=== PATIENT | female | born 1985 | race Caucasian/White ===

== ENCOUNTER 2021-11-11 22:47 | Inpatient (IN) | payer BC ==
[2021-11-11] MEDS ORDERED: Morphine 10 MG/ML VIAL IM SCH (23:45)
[2021-11-11] MEDS ORDERED: Promethazine HCl 25 MG/ML VIAL IM SCH (23:45)
[2021-11-11] MEDS ORDERED: hydrALAZINE 20 MG/ML VIAL SLOW IVP PRN (23:46)
[2021-11-12] MEDS ORDERED: hydrALAZINE 20 MG/ML VIAL SLOW IVP PRN ×2 (02:44→11:51)
[2021-11-12] MEDS ORDERED: Promethazine HCl 25 MG/ML VIAL IM PRN ×2 (02:44→06:22)
[2021-11-12] MEDS ORDERED: Ondansetron PF 4 MG/2 ML Vial IVP PRN ×3 (02:44→11:51)
[2021-11-12] MEDS ORDERED: Butorphanol Tartrate 1 MG/ML VIAL SLOW IVP PRN (02:44)
[2021-11-12] MEDS ORDERED: Lactated Ringer's 1,000 ML IV SCH ×2 (02:45)
[2021-11-12] MEDS ORDERED: Misoprostol 200 MCG TAB PR PRN (02:46)
[2021-11-12] MEDS ORDERED: HYDROcodone/Acetaminophen 5/325 mg Tablet PO PRN ×3 (02:46→11:51)
[2021-11-12] MEDS ORDERED: Lidocaine 1% (PF) 30 ML VIAL SC PRN (02:46)
[2021-11-12] MEDS ORDERED: Methylergonovine 0.2 MG/ML VIAL IM PRN (02:46)
[2021-11-12] MEDS ORDERED: Ibuprofen 800 MG TAB PO PRN (02:46)
[2021-11-12] MEDS ORDERED: Penicillin G Potassium 5 MILL.UNITS in Sodium Chloride 0.9% 100 ML IVPB SCH (03:00)
[2021-11-12 03:53] LABS: Hemoglobin 13.6 g/dL (12.0-15.5); Mean Corpuscular HGB CONC 35.4 g/dL (32.0-36.0); Mean Corpuscular Hemoglobin 31.3 pg (27.0-33.0); Mean Corpuscular Volume 88.3 fl (81.6-98.3); Mean Platelet Volume 10.6 fl (7.4-10.4); Platelet Count 254 10x3/uL (150-450); RBC Distribution Width 12.5 % (11.5-14.5); Red Blood Cell (RBC) Count 4.35 10x6/uL (3.90-5.03); White Blood Cell (WBC) Count 16.3 10x3/uL (3.5-10.5)
[2021-11-12 04:23] VITALS: BMI 34.7
[2021-11-12 04:30] LABS: Hep B Surf Ag Non-Reactive S/CO (NonReactive); Syphilis Antibody Nonreactive (Nonreactive); Syphilis Antibody Index 0.07 S/CO (<1.00 Non-Reactive)
[2021-11-12 04:37] LABS: HBSAg Index 0.26 S/CO (0-0.99)
[2021-11-12] MEDS ORDERED: Fentanyl 2 mcg/Bup 0.1% Cadd 100 ML ONE (05:47)
[2021-11-12 06:10] LABS: SARS-CoV-2 NAA Rapid Test Not Detected (NotDetected)
[2021-11-12] MEDS ORDERED: Lactated Ringer's 500 ML IV PRN (06:22)
[2021-11-12] MEDS ORDERED: Moisturizing Cream (Eucerin) 113 GM JAR TOP PRN (06:22)
[2021-11-12] MEDS ORDERED: Acetaminophen 325 MG TAB PO PRN (06:22)
[2021-11-12] MEDS ORDERED: diphenhydrAMINE 50 MG/ML VIAL IVP PRN (06:22)
[2021-11-12] MEDS ORDERED: ePHEDrine Sulfate 50 MG/10 ML VIAL SLOW IVP PRN (06:22)
[2021-11-12] MEDS ORDERED: Naloxone HCl 0.4 mg/ml Vial IVP PRN ×2 (06:22)
[2021-11-12] MEDS ORDERED: Communication Order-Pharmacy FS SCH (06:30)
[2021-11-12] MEDS ORDERED: Fentanyl 2 mcg/Bupivacaine 0.1% Cassette 100 ML EPIDURAL SCH (06:30)
[2021-11-12] MEDS ORDERED: Penicillin G 2.5 MILL.units 2.5 MILL.UNITS in Premix Bag 1 BAG IVPB SCH (07:00)
[2021-11-12] MEDS ORDERED: Bupivacaine/Epinephrine 0.25% 30 ML VIAL ONE (08:00)
[2021-11-12] MEDS ORDERED: ePHEDrine Sulfate 50 MG/10 ML VIAL ONE (08:00)
[2021-11-12] MEDS: NS w/ Oxytocin 30 units 500 ML IV SCH ×2 (10:10→11:45)
[2021-11-12] MEDS ORDERED: Zolpidem Tartrate 5 MG TAB PO PRN (11:51)
[2021-11-12] MEDS ORDERED: Milk Of Magnesia 30 ML UDCUP PO PRN (11:51)
[2021-11-12] MEDS ORDERED: diphenhydrAMINE 25 MG CAP PO PRN (11:51)
[2021-11-12] MEDS ORDERED: Misoprostol 200 MCG TAB VAG PRN (11:51)
[2021-11-12] MEDS ORDERED: Lanolin Ointment 7 GM TUBE TOP PRN (11:51)
[2021-11-12] MEDS ORDERED: Benzocaine-Menthol 82.5 ML CAN TOP PRN (11:51)
[2021-11-12] MEDS ORDERED: Bisacodyl 10 MG SUPP PR PRN (11:51)
[2021-11-12] MEDS ORDERED: Preparation H Ointment 28 GM TUBE PR PRN (11:51)
[2021-11-12] MEDS ORDERED: Boostrix 0.5 ML (Tdap) VIAL IM ONE (11:51)
[2021-11-12] MEDS ORDERED: NS w/ Oxytocin 30 units 500 ML IV SCH (12:00)
[2021-11-12] MEDS: Ibuprofen 800 MG TAB PO SCH ×2 (15:04→21:16)
[2021-11-12] MEDS: Ferrous Sulfate 325 MG TAB PO SCH (15:05)
[2021-11-12] MEDS: Docusate 100 MG CAP PO SCH (21:16)
[2021-11-13 04:17] LABS: Mean Corpuscular HGB CONC 33.7 g/dL (32.0-36.0); Mean Corpuscular Hemoglobin 30.6 pg (27.0-33.0); Mean Corpuscular Volume 90.8 fl (81.6-98.3); Mean Platelet Volume 10.2 fl (7.4-10.4); Platelet Count 207 10x3/uL (150-450); RBC Distribution Width 13.1 % (11.5-14.5); Red Blood Cell (RBC) Count 3.92 10x6/uL (3.90-5.03); White Blood Cell (WBC) Count 13.5 10x3/uL (3.5-10.5)
[2021-11-13] MEDS: Ibuprofen 800 MG TAB PO SCH ×3 (04:57→21:22)
[2021-11-13] MEDS: Ferrous Sulfate 325 MG TAB PO SCH ×2 (08:42→18:27)
[2021-11-13] MEDS: Prenatal Vitamin 1 TAB PO SCH (08:44)
[2021-11-13] MEDS: Docusate 100 MG CAP PO SCH ×2 (08:44→21:22)
[2021-11-14] MEDS: Ibuprofen 800 MG TAB PO SCH (05:34)
[2021-11-14] MEDS: Ferrous Sulfate 325 MG TAB PO SCH (08:30)
[2021-11-14] MEDS: Docusate 100 MG CAP PO SCH (08:32)
[2021-11-14] MEDS: Prenatal Vitamin 1 TAB PO SCH (08:32)
[2021-11-14 11:59] VITALS: BP 139/71; TEMP 98.5
== END 2021-11-14 13:25 | disposition home or self-care (01) | DRG 807 ==
LOC: CSHLD/OP 22:47 → CSHLD 11-12 03:31 → CSHPP 11-12 13:50
PROVIDERS: ADMIT Obstetrics & Gynecology; ATTEND Obstetrics & Gynecology
PROC: 10E0XZZ Delivery of Products of Conception, External Approach (ICD-10-PCS; principal; 2021-11-12)
PROC: 10907ZC Drainage of Amniotic Fluid, Therapeutic from Products of Conception, Via Natural or Artificial Opening (ICD-10-PCS; 2021-11-12)
PROC: 0HQ9XZZ Repair Perineum Skin, External Approach (ICD-10-PCS; 2021-11-12)
DX: O99.824 Streptococcus B carrier state complicating childbirth (principal); Z37.0 Single live birth; O70.0 First degree perineal laceration during delivery; Z3A.38 38 weeks gestation of pregnancy; Z20.822 Contact with and (suspected) exposure to COVID-19
CPT/HCPCS: 36415; 51702; 85027; 86780; 86850; 86900; 86901; 87340; 99285; J2270; J2540; J2550; J2590; J3490; U0002